=== PATIENT | male | born 2005 | race Caucasian/White ===

== ENCOUNTER 2025-05-03 08:45 | Emergency (ER) | payer SELFPAY | END 2025-05-03 13:45 | disposition home or self-care (01) | LOC: MW.ED 08:45 | DX: S00.83XA Contusion of other part of head, initial encounter (principal); S00.33XA Contusion of nose, initial encounter; W22.8XXA Striking against or struck by other objects, initial encounter; Y99.0 Civilian activity done for income or pay | CPT/HCPCS: 70450; 70450-26; 70486; 70486-26; 99284 ==